=== PATIENT | female | born 1960 | race Caucasian/White ===

== ENCOUNTER → 2016-08-14 | Outpatient (CLI) | payer MEDICARE ==
[~2016-08-14] MED LIST: CARAFATE 1 GM TA1 GM PO; LEVOTHYROXINE75 MCG PO; LIPITOR TAB 2020 MG PO; MECLIZINE HCL25 MG PO; NORVASC10 MG PO; OXYBUTYNIN CHLOR5 M1 PO; PERCOCET 10-321 EACH PO; PROTONIX 40 MG40 M1 PO; SULINDAC200 MG PO; TOPAMAX50 MG PO; VENTOLIN HFA 66.7 GM INH; XARELTO10 MG PO; ZESTRIL30 MG PO
== END ==
LOC: KOH-I 08-12 11:00
DX: M54.5 Low back pain (principal); R31.9 Hematuria, unspecified; Z91.040 Latex allergy status
CPT/HCPCS: 74176

== ENCOUNTER → 2020-10-17 | Outpatient (CLI) | payer MEDICARE | LOC: EXRD 14:37 | DX: M79.642 Pain in left hand (principal); M79.641 Pain in right hand; M79.672 Pain in left foot; M79.671 Pain in right foot; M19.042 Primary osteoarthritis, left hand; M19.041 Primary osteoarthritis, right hand | CPT/HCPCS: 73130; 73630 ==

== ENCOUNTER → 2021-02-18 | Outpatient (CLI) | payer MEDICARE, OTHER | LOC: EXRD 10:01 | DX: R05.9 Cough, unspecified (principal) | CPT/HCPCS: 71046 ==

== ENCOUNTER → 2021-03-28 | Outpatient (CLI) | payer MEDICARE | LOC: EXRD 08:56 | DX: M54.41 Lumbago with sciatica, right side (principal); M47.816 Spondylosis without myelopathy or radiculopathy, lumbar region | CPT/HCPCS: 72100 ==

== ENCOUNTER → 2021-07-18 | Outpatient (CLI) | payer MEDICARE | LOC: CT 12:43 | DX: R10.30 Lower abdominal pain, unspecified (principal); R93.3 Abnormal findings on diagnostic imaging of other parts of digestive tract | CPT/HCPCS: Q9967 ==

== ENCOUNTER → 2021-08-20 | Day surgery (SDC) | payer MEDICARE ==
[~2021-08-20] MED LIST changes: +BENTYL 10MG CAP10 MG PO; +DIFLUCAN150 MG PO; +HUMALOG MI100 UNIT/1 SQ; +HYDRALAZINE HCL25 MG PO; +IBUPROFEN800 MG PO; +JARDIANCE25 MG PO; +LANTUS SOL100 UNIT/1 SQ; +MIRAPEX ER0.75 MG PO; +STIOLTO RESPIMAT4 GM INH
== END | disposition home or self-care (01) ==
LOC: OR 06:52
DX: K57.30 Diverticulosis of large intestine without perforation or abscess without bleeding (principal); E78.00 Pure hypercholesterolemia, unspecified; K64.1 Second degree hemorrhoids; K64.4 Residual hemorrhoidal skin tags; I10 Essential (primary) hypertension; E03.9 Hypothyroidism, unspecified; E11.9 Type 2 diabetes mellitus without complications; E66.9 Obesity, unspecified; F17.210 Nicotine dependence, cigarettes, uncomplicated; E78.5 Hyperlipidemia, unspecified; Z20.822 Contact with and (suspected) exposure to COVID-19; Z79.84 Long term (current) use of oral hypoglycemic drugs; Z79.4 Long term (current) use of insulin; Z68.30 Body mass index [BMI] 30.0-30.9, adult
CPT/HCPCS: 82962; J2704; J7040

== ENCOUNTER 2021-09-06 20:20 | Emergency (ER) | payer MEDICARE ==
[2021-09-06 23:35] LABS: HEMOGLOBIN 15.2 gm/dl (12.3-15.3); RED BLOOD COUNT 5.02 M/UL (4.00-5.10); WHITE BLOOD COUNT 14.2 K/UL (4.5-11.0)
[2021-09-07 00:12] LABS: BUN/CREATININE RATIO 30 (0-10)
== END 2021-09-07 01:00 | disposition home or self-care (01) ==
LOC: ER1 20:20
PROVIDERS: Family Medicine
DX: J44.9 Chronic obstructive pulmonary disease, unspecified (principal); J02.9 Acute pharyngitis, unspecified; Z20.822 Contact with and (suspected) exposure to COVID-19; E11.9 Type 2 diabetes mellitus without complications; R53.1 Weakness; F17.210 Nicotine dependence, cigarettes, uncomplicated
CPT/HCPCS: 71045; 80053; 82550; 82553; 84484; 85025; 93005; 99285; U0002

== ENCOUNTER → 2021-11-05 | Outpatient (CLI) | payer MEDICARE | LOC: HEART 5 08:49 | DX: R05.9 Cough, unspecified (principal); R06.02 Shortness of breath; R06.2 Wheezing | CPT/HCPCS: 94060; 94729 ==